=== PATIENT | male | born 1990 | race Caucasian/White ===

== ENCOUNTER 2020-05-29 19:26 | Emergency (ER) | payer SELFPAY ==
[2020-05-29] MEDS ORDERED: Tamsulosin 0.4 MG Cap.ER PO ONE (20:11)
--- NOTE | 2020-05-29 20:15 | EDM.PDOC ---
ED HPI GENERAL MEDICAL PROBLEM - General Chief Complaint: Back Pain or Injury Stated Complaint: RT SIDE FLANK PAIN Time Seen by Provider: 05/29/20 19:37 Source of Information: Reports: Patient History Limitations: Reports: No Limitations - History of Present Illness INITIAL COMMENTS - FREE TEXT/NARRATIVE: Mr. Dave is a very pleasant 29-year-old gentleman who now presents to the ED with right flank pain that was present at 10 AM when he woke this morning. He notes that he was drinking a lot last night, but he does not recall falling or otherwise injuring his back. He states that the back pain radiates around to his right lower quadrant. The pain is constant, and he has not identified any modifiers. No associated urinary symptoms, such as dysuria, urinary frequency, or gross hematuria. No prior similar symptoms. The patient states that he took 800 mg of ibuprofen around 19:00 tonight, without any relief of his symptoms. Here in the ED, the patient's initial BP is found to be mildly elevated at 144/94, otherwise, the patient is found to be hemodynamically stable, afebrile, saturating 100% on room air. Prior to this morning, the patient denies having a recent fever, chills, sore throat, ear pain, nasal or sinus congestion, cough, dyspnea, chest pain, palpitations, nausea, vomiting, constipation, diarrhea, abdominal pain, urinary symptoms, recent weight gain or weight loss, recent bloody bowel movements or black bowel movements, recent joint aches, headaches, or rashes. The patient does not have a PCP. He has not received an influenza vaccine this season, and declined an offer to receive one here tonight. Right Lower Back Pain Score (Numeric/FACES): 8 - Related Data Allergies Allergy/AdvReac Type Severity Reaction Status Date / Time No Known Allergies Allergy Verified 05/29/20 19:39 Home Meds: Home Meds . [No Known Home Meds] 05/29/20 [History] Past Medical History - Past Health History Medical/Surgical History: Denies Medical/Surgical History Endocrine/Metabolic History: Reports: Obesity/BMI 30+ Social & Family History - Family History Cardiac: Reports: CAD - Tobacco Use Tobacco Use Status *Q: Never Tobacco User Second Hand Smoke Exposure: No - Caffeine Use Caffeine Use: Reports: Coffee, Energy Drinks, Soda - Recreational Drug Use Recreational Drug Use: No ED ROS GENERAL - Review of Systems Review Of Systems: Comprehensive ROS is negative, except as noted in HPI. ED EXAM, RENAL/ - Physical Exam Exam: See Below Exam Limited By: No Limitations General Appearance: Alert, WD/WN, No Apparent Distress Ears: Normal External Exam, Normal Canal, Hearing Grossly Normal, Normal TMs Nose: Normal Inspection, Normal Mucosa, No Blood Throat/Mouth: Normal Inspection, Normal Lips, Normal Teeth, Normal Gums, Normal Oropharynx, Normal Voice, No Airway Compromise Head: Atraumatic, Normocephalic Neck: Normal Inspection, Supple, Non-Tender, Full Range of Motion Respiratory/Chest: No Respiratory Distress, Lungs Clear, Normal Breath Sounds, No Accessory Muscle Use, Chest Non-Tender Cardiovascular: Normal Peripheral Pulses, Regular Rate, Rhythm, No Edema, No Gallop, No JVD, No Murmur, No Rub GI/Abdominal: Normal Bowel Sounds, Soft, Non-Tender, No Organomegaly, No Distention, No Abnormal Bruit, No Mass (Male) Exam: No Hernia, Normal Inspection, Normal Prostate, Circumcised Rectal (Males) Exam: Normal Exam, Normal Rectal Tone, Prostate Normal Back Exam: Normal Inspection, Full Range of Motion, NT Extremities: Normal Inspection, Normal Range of Motion, Non-Tender, Normal Capillary Refill, No Pedal Edema Neurological: Alert, Oriented, CN II-XII Intact, Normal Cognition, Normal Gait, Normal Reflexes, No Motor/Sensory Deficits Psychiatric: Normal Affect, Normal Mood Skin Exam: Warm, Dry, Intact, Normal Color, No Rash Lymphatic: No Adenopathy Course - Vital Signs Last Recorded V/S: Last Vital Signs Temp 36.0 C L 05/29/20 19:37 Pulse 85 05/29/20 19:37 Resp 17 05/29/20 19:37 BP 144/94 H 05/29/20 19:37 Pulse Ox 100 05/29/20 19:37 - Orders/Labs/Meds Orders: Active Orders 24 hr Category Date Time Status Strain Urine [RC] ASDIRECTED Care 05/29/20 21:46 Ordered Abdomen Pelvis wo Cont [CT] Stat Exams 05/29/20 20:10 Taken Labs: Laboratory Tests 05/29/20 Range/Units 20:30 Urine Color Yellow (Yellow) Urine Appearance Clear (Clear) Urine pH 5.5 (5.0-8.0) Ur Specific [place] 1.025 (1.005-1.030) Urine Protein Negative (Negative) Urine Glucose (UA) Negative (Negative) Urine Ketones Negative (Negative) Urine Occult Blood 3+ H (Negative) Urine Nitrite Negative (Negative) Urine Bilirubin Negative (Negative) Urine Urobilinogen 0.2 (0.2-1.0) Ur Leukocyte Esterase Negative (Negative) Urine RBC 20-30 H (0-5) /hpf Urine WBC 0-5 (0-5) /hpf Ur Squamous Epith Cells 0-5 (0-5) /hpf Urine Bacteria Few (FEW) /hpf Urine Mucus Moderate H (FEW) /hpf Meds: Medications Discontinued Medications Generic Name Dose Route Start Last Admin Trade Name Freq PRN Reason Stop Dose Admin Tamsulosin HCl 0.4 mg 05/29/20 20:11 05/29/20 20:17 Flomax PO 05/29/20 20:12 0.4 mg ONETIME ONE Administration - Re-Assessments/Exams Free Text/Narrative Re-Assessment/Exam: 05/29/20 20:14 The patient's history and physical examination are most consistent with a right sided ureterolith. I have ordered a CT of the abdomen and pelvis without contrast to evaluate, along with a urinalysis by clean-catch. He will be given a single dose of oral tamsulosin, but he declined an offer for pain medication. 05/29/20 21:45 The patient's urinalysis is remarkable for 3+ occult blood with 20-30 RBCs, and is otherwise unremarkable. CT of the abdomen and pelvis without contrast is read by [facility] as: 1. Mild right hydroureteronephrosis, most likely due to a tiny 2 mm stone in the bladder lumen which has recently passed from the right ureter. 2. Mild bladder wall thickening. This is a nonspecific finding, but can be seen with cystitis. 3. See above for remaining findings. Based on the above, I will order a urine strainer. 05/29/20 21:52 Test results discussed with the patient. He states that he is already starting to feel better. He has already been given a urine strainer. I offered to prescribe some pain medication or additional tamsulosin, but he declined. I will discharge him home with recommendation that he continue to strain his urine until he captured the stone, then to have it analyzed. Departure - Departure Time of Disposition: 21:53 Disposition: Home, Self-Care 01 Condition: Good Clinical Impression: Ureterolithiasis - Discharge Information *PRESCRIPTION DRUG MONITORING PROGRAM REVIEWED*: Not Applicable *COPY OF PRESCRIPTION DRUG MONITORING REPORT IN PATIENT CARY: Not Applicable Referrals: PCP,None [Primary Care Provider] - Forms: ED Department Discharge Additional Instructions: You were seen in the emergency room after developing right flank pain this morning, that radiated around to your lower right abdomen. Work-up in the ER included a urinalysis and a CT of your abdomen and pelvis with out contrast. The CT confirmed that you have a 2 mm stone that has already passed into your bladder. Your urinalysis showed no urinary tract infection. We recommend that you stay adequately hydrated and strain all of your urine through the strainer that was given to you. If you capture the stone, take it to a doctor for analysis. You were offered, but declined, pain medication. If any other problems, please do not hesitate to return to the ER. Sepsis Event Note (ED) - Evaluation Sepsis Screening Result: No Definite Risk - Focused Exam Vital Signs: Vital Signs Temp Pulse Resp BP Pulse Ox 05/29/20 19:37 36.0 C L 85 17 144/94 H 100 - My Orders Last 24 Hours: My Active Orders 05/29/20 20:10 Abdomen Pelvis wo Cont [CT] Stat 05/29/20 21:46 Strain Urine [RC] ASDIRECTED - Assessment/Plan Last 24 Hours: My Active Orders 05/29/20 20:10 Abdomen Pelvis wo Cont [CT] Stat 05/29/20 21:46 Strain Urine [RC] ASDIRECTED
--- NOTE | 2020-05-30 10:18 | CT ---
PROCEDURE INFORMATION: Exam: CT Abdomen And Pelvis Without Contrast Exam date and time: 05/29/2020 8:58 PM Age: 29 years old Clinical indication: Abdominal pain; Patient HX: Eval for right ureterolith, pain; Additional info: Previous reports scanned for your review TECHNIQUE: Imaging protocol: Computed tomography of the abdomen and pelvis without contrast. COMPARISON: No relevant prior studies available. FINDINGS: Lungs: No significant abnormality in the visualized lung bases. Liver: No significant abnormality. Gallbladder and bile ducts: No significant abnormality. Pancreas: No significant abnormality. Spleen: No significant abnormality. Adrenal glands: No significant abnormality. Kidneys and ureters: Mild right hydroureteronephrosis. No obstructing stones are seen in the right ureter. However, there is a tiny 2 mm stone in the bladder lumen posteriorly and on the right, which has most likely recently passed from the right ureter No significant abnormality of the left kidney. Stomach and bowel: No acute abnormality. Create No acute abnormality of the stomach or duodenum. No acute abnormality of the colon. No acute abnormality of the small bowel. Appendix: Appendix is seen, and is within normal limits in appearance. Intraperitoneal space: No evidence of free air or free fluid. Vasculature: No evidence of abdominal aortic aneurysm. Lymph nodes: No evidence of diffuse pathologic lymphadenopathy. Urinary bladder: Mild, diffuse bladder wall thickening. Reproductive: No significant abnormality. Bones/joints: No acute bony abnormality. Soft tissues: Small umbilical hernia, containing only fat. IMPRESSION: 1. Mild right hydroureteronephrosis, most likely due to a tiny 2 mm stone in the bladder lumen which has recently passed from the right ureter. 2. Mild bladder wall thickening. This is a nonspecific finding, but can be seen with cystitis. Recommend clinical correlation. 3. See above for remaining findings. Thank you for allowing us to participate in the care of your patient. Dictated and Authenticated by: Ketty Ho MD 05/29/2020 10:43 PM Central Time ([place] & [place]) [facility]ITALJel[facility]
== END 2020-05-29 21:57 | disposition home or self-care (01) ==
LOC: JD.ED 19:26
DX: N13.2 Hydronephrosis with renal and ureteral calculous obstruction (principal); E66.9 Obesity, unspecified; Z68.35 Body mass index [BMI] 35.0-35.9, adult
CPT/HCPCS: 74176; 81001; 99284; A9270

== ENCOUNTER 2021-05-07 14:21 | Emergency (ER) | payer BC, OTHER ==
--- NOTE | 2021-05-07 15:12 | EDM.PDOC ---
ED HPI GENERAL MEDICAL PROBLEM - General Chief Complaint: Respiratory Problem Stated Complaint: COUGH/SHORTNESS OF BREATH Time Seen by Provider: 05/07/21 14:40 Source of Information: Reports: Patient History Limitations: Reports: No Limitations - History of Present Illness INITIAL COMMENTS - FREE TEXT/NARRATIVE: Mr. Dave is a pleasant 30-year-old gentleman who now presents the ED stating that he developed a subjective fever with chills, generalized body aches, a cough occasionally productive of clear sputum, chest congestion, dyspnea both at rest and with exertion, fatigue, nausea, a decreased appetite, and a sore throat 1 week ago today, 04/30/2021. He denies having vomiting, diarrhea, or loss of taste or smell. He has taken NyQuil, ibuprofen, and Cherri-Pratt. He states that the ibuprofen helps with his body aches, but that the NyQuil and Cherri-Pratt did not help. He states that his girlfriend, with whom he lives, has a similar symptoms. He has not been tested for the SARS-CoV-2 virus. Here in the ED, the patient is found to be hemodynamically stable, afebrile, saturating 91% on room air. He appears to be relatively comfortable, in no acute distress. Prior to last Saturday, the patient denies having a recent fever, chills, sore throat, ear pain, nasal or sinus congestion, cough, dyspnea, chest pain, palpitations, nausea, vomiting, constipation, diarrhea, abdominal pain, urinary symptoms, recent weight gain or weight loss, recent bloody bowel movements or black bowel movements, recent joint aches, headaches, or rashes. The patient does not have a PCP. He has not received a COVID vaccination, nor an influenza vaccination this season. Middle Occipital Headache Pain Score (Numeric/FACES): 8 - Related Data Allergies Allergy/AdvReac Type Severity Reaction Status Date / Time No Known Allergies Allergy Verified 05/07/21 14:57 Home Meds: Home Meds . [No Known Home Meds] 05/29/20 [History] Past Medical History Genitourinary History: Reports: Renal Calculus Endocrine/Metabolic History: Reports: Obesity/BMI 30+ Social & Family History - Tobacco Use Tobacco Use Status *Q: Never Tobacco User - Caffeine Use Caffeine Use: Reports: Coffee, Energy Drinks, Soda - Alcohol Use Alcohol Use History: Yes Alcohol Use Frequency: Socially - Recreational Drug Use Recreational Drug Use: No - Living Situation & Occupation Living situation: Reports: , with Significant Other (Girlfriend + her mother + mother's boyfrined) Occupation: Employed ([employer] truck driver) ED ROS GENERAL - Review of Systems Review Of Systems: Comprehensive ROS is negative, except as noted in HPI. ED EXAM, GENERAL - Physical Exam Exam: See Below Exam Limited By: No Limitations General Appearance: Alert, WD/WN, No Apparent Distress Eye Exam: Bilateral Eye: EOMI, Normal Inspection Ears: Normal External Exam, Hearing Grossly Normal Nose: Normal Inspection Throat/Mouth: Normal Inspection, Normal Lips, Normal Voice, No Airway Compromise Head: Atraumatic, Normocephalic Neck: Normal Inspection, Full Range of Motion Respiratory/Chest: No Respiratory Distress, Lungs Clear, Normal Breath Sounds, No Accessory Muscle Use. No: Decreased Breath Sounds, Crackles, Rhonchi, Wheezing, Stridor, Prolonged Expiration Cardiovascular: Normal Peripheral Pulses, Regular Rate, Rhythm, No Edema, No Gallop, No JVD, No Murmur, No Rub Peripheral Pulses: 3+: Radial (L), Radial (R) GI/Abdominal: Normal Bowel Sounds, Soft, Non-Tender, No Organomegaly, No Distention, No Abnormal Bruit, No Mass Back Exam: Normal Inspection, Full Range of Motion, NT Extremities: Normal Inspection, Normal Range of Motion, No Pedal Edema, Normal Capillary Refill Neurological: Alert, Oriented, Normal Cognition, No Motor/Sensory Deficits Psychiatric: Normal Affect Skin Exam: Warm, Dry, Intact, Normal Color, No Rash Course - Vital Signs Last Recorded V/S: Last Vital Signs Temp 37.3 C 05/07/21 14:44 Pulse 99 05/07/21 14:44 Resp 20 05/07/21 14:44 BP 133/84 05/07/21 14:44 Pulse Ox 91 L 05/07/21 14:44 - Orders/Labs/Meds Labs: Laboratory Tests 05/07/21 05/07/21 05/07/21 Range/Units 15:25 15:25 15:25 WBC 3.89 L (4.23-9.07) K/mm3 RBC 5.17 (4.63-6.08) M/mm3 Hgb 14.7 (13.7-17.5) gm/dl Hct 43.1 (40.1-51.0) % MCV 83.4 (79.0-92.2) fl MCH 28.4 (25.7-32.2) pg MCHC 34.1 (32.2-35.5) g/dl RDW Std Deviation 40.1 (35.1-43.9) fL Plt Count 247 (163-337) K/mm3 MPV 9.5 (9.4-12.3) fl Neutrophils % (Manual) 80 H (40-60) % Band Neutrophils % 0 (0-10) % Lymphocytes % (Manual) 16 L (20-40) % Atypical Lymphs % 0 % Monocytes % (Manual) 4 (2-10) % Eosinophils % (Manual) 0 L (0.8-7.0) % Basophils % (Manual) 0 L (0.2-1.2) Platelet Estimate Adequate Plt Morphology Comment Normal RBC Morph Comment Normal D-Dimer, Quantitative 0.93 H (0.19-0.50) mg/L Sodium 137 (136-145) mEq/L Potassium 3.6 (3.5-5.1) mEq/L Chloride 101 (98-107) mEq/L Carbon Dioxide 27 (21-32) mEq/L Anion Gap 12.6 (5-15) BUN 13 (7-18) mg/dL Creatinine 1.1 (0.7-1.3) mg/dL Est Cr Clr Drug Dosing 99.98 mL/min Estimated GFR (MDRD) > 60 (>60) mL/min BUN/Creatinine Ratio 11.8 L (14-18) Glucose 107 H (70-99) mg/dL Calcium 8.6 (8.5-10.1) mg/dL Total Bilirubin 0.3 (0.2-1.0) mg/dL AST 63 H (15-37) U/L ALT 66 H (16-63) U/L Alkaline Phosphatase 68 (46-116) U/L C-Reactive Protein 3.5 H* (<1.0) mg/dL Total Protein 7.8 (6.4-8.2) g/dl Albumin 3.6 (3.4-5.0) g/dl Globulin 4.2 gm/dL Albumin/Globulin Ratio 0.9 L (1-2) SARS-CoV-2 RNA (M[facility]NA) (NEGATIVE) 05/07/21 Range/Units 15:28 WBC (4.23-9.07) K/mm3 RBC (4.63-6.08) M/mm3 Hgb (13.7-17.5) gm/dl Hct (40.1-51.0) % MCV (79.0-92.2) fl MCH (25.7-32.2) pg MCHC (32.2-35.5) g/dl RDW Std Deviation (35.1-43.9) fL Plt Count (163-337) K/mm3 MPV (9.4-12.3) fl Neutrophils % (Manual) (40-60) % Band Neutrophils % (0-10) % Lymphocytes % (Manual) (20-40) % Atypical Lymphs % % Monocytes % (Manual) (2-10) % Eosinophils % (Manual) (0.8-7.0) % Basophils % (Manual) (0.2-1.2) Platelet Estimate Plt Morphology Comment RBC Morph Comment D-Dimer, Quantitative (0.19-0.50) mg/L Sodium (136-145) mEq/L Potassium (3.5-5.1) mEq/L Chloride (98-107) mEq/L Carbon Dioxide (21-32) mEq/L Anion Gap (5-15) BUN (7-18) mg/dL Creatinine (0.7-1.3) mg/dL Est Cr Clr Drug Dosing mL/min Estimated GFR (MDRD) (>60) mL/min BUN/Creatinine Ratio (14-18) Glucose (70-99) mg/dL Calcium (8.5-10.1) mg/dL Total Bilirubin (0.2-1.0) mg/dL AST (15-37) U/L ALT (16-63) U/L Alkaline Phosphatase (46-116) U/L C-Reactive Protein (<1.0) mg/dL Total Protein (6.4-8.2) g/dl Albumin (3.4-5.0) g/dl Globulin gm/dL Albumin/Globulin Ratio (1-2) SARS-CoV-2 RNA (MIRNA) Positive H (NEGATIVE) - Re-Assessments/Exams Free Text/Narrative Re-Assessment/Exam: 05/07/21 15:10 I have ordered a work-up that includes several blood tests, a swab for the SARS-CoV-2 virus and influenza A + B viruses, and a portable chest x-ray. 05/07/21 16:15 Portable chest x-ray is read by Dr. Abernathy as: 1. Increased density within both sides of the chest highly suspicious for Covid pneumonia. Please correlate. 05/07/21 16:45 The patient's CBC is remarkable for mild leukopenia of 3.89, with remainder of his CBC being unremarkable. His CMP is remarkable for slight hyperglycemia of 107, and is otherwise unremarkable. His CRP is mildly elevated at 3.5. His D-dimer is mildly elevated at 0.93. His swab for the SARS-CoV-2 virus is positive. His swab for influenza A + B viruses is negative. 05/07/21 16:58 Test results discussed with the patient. As above, the patient has COVID-19. Because he is 30 years old, otherwise healthy, and his CRP is only 3.5, I would expect that he will do relatively well, and, therefore, given our limited supply of monoclonal antibodies, I am not going to offer him treatment with it. The patient expressed understanding with that rationale. I will discharge the patient home with recommendation that he stay adequately hydrated and take OTC ibuprofen as needed for discomfort. He should acquire a finger pulse oximeter and check his oxygen saturation several times a day. If it drops down to 90%, persistently, he should return to the ED for reevaluation. Otherwise, he will need to strictly isolate through 05/17/2021, at which time he should get retested. Departure - Departure Time of Disposition: 17:01 Disposition: Home, Self-Care 01 Condition: Good Clinical Impression: COVID-19 - Discharge Information *PRESCRIPTION DRUG MONITORING PROGRAM REVIEWED*: Not Applicable *COPY OF PRESCRIPTION DRUG MONITORING REPORT IN PATIENT CARY: Not Applicable Instructions: COVID-19 Frequently Asked Questions, COVID-19 Vaccine Information, 10 Things You Can Do to Manage Your COVID-19 Symptoms at Home - [facility] (01/20/2021) Referrals: PCP,None [Primary Care Provider] - Forms: ED Department Discharge, ED Return to Work/School Form Additional Instructions: You were seen in the emergency room for a cough with chest congestion, fatigue, body aches, chills, a sore throat, shortness of breath at rest and with exertion, nausea, and a decreased appetite. Work-up in the ER included several blood tests, a swab for the SARS-CoV-2 virus and influenza A + B viruses, and a chest x-ray. Your swab for the SARS-CoV-2 virus returned positive, indicating that you have COVID-19. Your CRP, a measure of inflammation, returned modestly elevated at 3.5. Given your relatively young age, your good health, and the modest elevation of your CRP, treatment with monoclonal antibodies was not recommended, given the limited supply that we have. Going forward, we recommend that you stay adequately hydrated, and take [id number] ibuprofen as needed for discomfort. As discussed, it is imperative that you strictly isolate through 05/17/2021, at which time you should get retested. If you still test positive, you will need to continue to isolate until you test negative. A note to be off work through 05/17/2021 has been provided to you. We recommend that you acquire a home finger pulse oximeter, and check your oxygen saturation several times a day. If it drops down to 90%, persistently, we recommend that you return to the ER for reevaluation. Sepsis Event Note (ED) - Evaluation Sepsis Screening Result: No Definite Risk - Focused Exam Vital Signs: Vital Signs Temp Pulse Resp BP Pulse Ox 05/07/21 14:44 37.3 C 99 20 133/84 91 L
--- NOTE | 2021-05-07 16:02 | CR ---
Chest: Portable view of the chest was obtained. Comparison: Prior portable chest x-ray of 06/20/18. Heart size and mediastinum are stable. Patchy increased density is seen on both sides of the chest. Bony structures show nothing acute. Impression: 1. Increased density within both sides of the chest highly suspicious for Covid pneumonia. Please correlate. Diagnostic code #3
== END 2021-05-07 17:41 | disposition home or self-care (01) ==
LOC: JD.ED 14:21
DX: U07.1 COVID-19 (principal); E66.9 Obesity, unspecified; Z68.41 Body mass index [BMI] 40.0-44.9, adult
CPT/HCPCS: 36415; 71045; 71045-26; 80053; 85007; 85027; 85379; 86140; 87804; 99285-25; U0002

== ENCOUNTER 2022-06-25 16:34 | Emergency (ER) | payer BC ==
[2022-06-25] MEDS ORDERED: Ketorolac 60 MG/2 ML SDV IM ONE (18:21)
== END 2022-06-25 19:14 | disposition home or self-care (01) ==
LOC: JD.ED 16:34
DX: R07.89 Other chest pain (principal); R07.2 Precordial pain; E66.9 Obesity, unspecified; Z68.41 Body mass index [BMI] 40.0-44.9, adult; Z86.16 Personal history of COVID-19
CPT/HCPCS: 36415; 71046; 80053; 84484; 85025; 85379; 93005; 96372; 99285; J1885